=== PATIENT | male | born 2005 | race Caucasian/White ===

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

== ENCOUNTER 2024-12-24 10:57 | Emergency (ER) | payer MEDICAID ==
[2024-12-24 11:33] VITALS: BP 116/71; PULSE 67
== END 2024-12-24 13:13 | disposition home or self-care (01) ==
LOC: JP.ED 10:57
DX: S93.401A Sprain of unspecified ligament of right ankle, initial encounter (principal); Z86.16 Personal history of COVID-19; X50.9XXA Other and unspecified overexertion or strenuous movements or postures, initial encounter; Y93.22 Activity, ice hockey
CPT/HCPCS: 73610-26-RT; 73610-RT; 99283